=== PATIENT | female | born 1985 | race Caucasian/White ===

== ENCOUNTER 2018-01-01 14:42 | Inpatient (IN) | payer MEDICAID ==
[~2018-01-01] VITALS: Ht 162.6 cm; Wt 81.0 kg
[2018-01-01] MEDS ORDERED: 0.9% SODIUM CHLORIDE 10 ML SYRINGE IVP PRN (15:45)
[2018-01-01 16:14] LABS: HEMATOCRIT 38.5 % (36-46); HEMOGLOBIN 13.2 g/dL (12.0-16.0); MEAN CORPUSCULAR HEMOGLOBIN 27.4 pg (26.0-34.0); MEAN CORPUSCULAR HGB CONC 34.4 G/dL (31.0-37.0); MEAN CORPUSCULAR VOLUME 80 fL (80-100); PLATELET COUNT (AUTO) 340 K/uL (150-450); RED BLOOD CELL COUNT(AUTO) 4.83 MIL/uL (4.00-5.20)
[2018-01-01 16:21] LABS: ALBUMIN 1.9 g/dL (3.4-5.0); BILIRUBIN,TOTAL 0.5 mg/dL (0.1-1.0); CALCIUM, TOTAL 8.2 mg/dL (8.8-10.5); CREATININE 1.36 mg/dL (0.60-1.30); POTASSIUM 3.3 mmol/L (3.5-5.1); TOTAL PROTEIN, SERUM 6.5 g/dL (6.4-8.2)
[2018-01-01 16:24] LABS: LACTIC ACID 1.2 mmol/L (0.4-2.0)
[2018-01-01] MEDS ORDERED: PIPERACILLIN/TAZO 3.375 GM/D5W 50 ML IV ONE ×2 (17:00→21:00)
[2018-01-01] MEDS ORDERED: KETOROLAC TROMETHAMINE 30 MG/ML VIAL IVP ONE (17:00)
[2018-01-01] MEDS ORDERED: VANCOMYCIN HCL 1 GM/D5% WATER 200 ML IV ONE (17:00)
[2018-01-01] MEDS ORDERED: SODIUM CHLORIDE 0.9% 1,000 ML IV ONE ×3 (17:00→19:35)
[2018-01-01 17:03] LABS: BAND NEUTROPHILS % (MANUAL) 9 % (0-5); EOSINOPHILS % (MANUAL) 1 % (1-6); LYMPHOCYTES % (MANUAL) 10 % (22-44); MONOCYTES % (MANUAL) 4 % (2-9); SEGMENTED NEUTROPHILS % 76 % (40-70)
[2018-01-01 17:09] LABS: PLATELET MORPHOLOGY COMMENT GIANT PLTS PRESENT
[2018-01-01] MEDS ORDERED: CloNIDine HCL 0.2 MG TABLET PO ONE (17:45)
[2018-01-01] MEDS ORDERED: ONDANSETRON HCL 4 MG/2 ML VIAL IVP ONE (17:45)
[2018-01-01] MEDS ORDERED: ACETAMINOPHEN 325 MG TABLET PO ONE (17:45)
[2018-01-01] MEDS ORDERED: IOVERSOL 350 MG/ML 100 ML VIAL ONE (18:43)
[2018-01-01] MEDS ORDERED: SODIUM CL IRRIG SOLN BAG 3,000 ML IRRIG ONE (19:35)
[2018-01-01] MEDS ORDERED: RINGERS SOLUTION,LACTATED 1,000 ML IV ONE (19:36)
[2018-01-01] MEDS ORDERED: ONDANSETRON HCL 4 MG/2 ML VIAL IVP PRN (20:00)
[2018-01-01] MEDS ORDERED: ACETAMINOPHEN 325 MG TABLET PO PRN (20:00)
[2018-01-01] MEDS ORDERED: HEPARIN SODIUM 1000 UNITS/NS 500 ML ONE (20:03)
[2018-01-01] MEDS ORDERED: IPRATROPIUM BROMIDE 0.5 MG/2.5 ML NEB SOLUTION NEB PRN (20:30)
[2018-01-01] MEDS ORDERED: POTASSIUM CHLORIDE 20 MEQ ER TABLET PO PRN (20:30)
[2018-01-01] MEDS ORDERED: BISACODYL 10 MG RECTAL RECTAL SUPPOSITORY PR PRN (20:30)
[2018-01-01] MEDS ORDERED: MAGNESIUM SULFATE 2 GM in DEXTROSE 5%-WATER 50 ML IV PRN (20:30)
[2018-01-01] MEDS ORDERED: ALBUTEROL SULFATE 2.5 MG/0.5 ML NEB SOLUTION NEB PRN (20:30)
[2018-01-01] MEDS ORDERED: MAGNESIUM HYDROXIDE SUSPENSION 30 ML UDCUP PO PRN (20:30)
[2018-01-01] MEDS ORDERED: MAGNESIUM OXIDE 400 MG TABLET PO PRN (20:30)
[2018-01-01] MEDS ORDERED: MAGNESIUM SULFATE 4 GM/WATER 100 ML IV PRN (20:30)
[2018-01-01 21:15] LABS: ABG A-A DIFF O2 206.3 mmHg (10-20.0); ABG CARBOXYHEMOGLOBIN 1.1 % (0.0-1.5); ABG HCO3 21.3 mmol/L (22.0-26.0); ABG METHEMOGLOBIN 0.1 % (0.0-1.5); ABG OXYGEN CONTENT 18.4 mL/dL (15.0-23.0); ABG OXYGEN SATURATION 98.8 % (95.0-98.0); ABG OXYHEMOGLOBIN 97.6 % (94.0-100.0); ABG PCO2 30 mmHg (35-45); ABG PH 7.429 (7.350-7.450); ABG TOTAL HEMOGLOBIN 13.3 G/dL (12.0-18.0); O2 DEVICE,BLOOD GAS VENTILATOR (ROOM AIR); PEEP,BG 5 cm H2O; PO2, ARTERIAL BG 116.9 mmHg (92.0-100.0); SITE, BLOOD GAS ARTERIAL LINE; SOURCE, BLOOD GAS ARTERIAL; VT, ABG 550 ml
[2018-01-01] MEDS ORDERED: SODIUM BICARBONATE [ADULT] 8.4% 50 MEQ/50 ML SYRINGE IVP ONE (21:19)
[2018-01-01 21:55] LABS: HEMATOCRIT 24.5 % (36-46); HEMOGLOBIN 8.4 g/dL (12.0-16.0); MEAN CORPUSCULAR HEMOGLOBIN 27.5 pg (26.0-34.0); MEAN CORPUSCULAR HGB CONC 34.3 G/dL (31.0-37.0); MEAN CORPUSCULAR VOLUME 80 fL (80-100); PLATELET COUNT (AUTO) 219 K/uL (150-450); RED BLOOD CELL COUNT(AUTO) 3.06 MIL/uL (4.00-5.20); RED CELL DISTRIBUTION WIDTH 14.7 % (11.5-14.5)
[2018-01-01] MEDS ORDERED: RINGERS SOLUTION,LACTATED 2,000 ML IV ONE (21:55)
[2018-01-01] MEDS ORDERED: SODIUM CHLORIDE 0.9% 250 ML IV ONE (22:19)
[2018-01-01 22:22] LABS: BAND NEUTROPHILS % (MANUAL) 18 % (0-5); EOSINOPHILS % (MANUAL) 3 % (1-6); LYMPHOCYTES % (MANUAL) 5 % (22-44); MONOCYTES % (MANUAL) 7 % (2-9); SEGMENTED NEUTROPHILS % 67 % (40-70)
[2018-01-01 22:23] LABS: PLATELET MORPHOLOGY COMMENT GIANT PLTS PRESENT; WBC MORPHOLOGY TOXIC GRANULATION
[2018-01-01] MEDS ORDERED: PIPERACILLIN/TAZO 3.375 GM/D5W 50 ML IV SCH (23:00)
[2018-01-01] MEDS ORDERED: NOREPINEPHRINE 4 MG/D5%-WATER 250 ML IV PRN (23:32)
[2018-01-01] MEDS ORDERED: PHENYLEPHRINE 200 MG/D5%-WATER 250 ML IV PRN (23:32)
[2018-01-01] MEDS: HEPARIN SODIUM,PORCINE 5,000 UNITS/ML VIAL SQ SCH (23:43)
[2018-01-01] MEDS: SODIUM CHLORIDE 0.9% 1,000 ML IV SCH (23:43)
[2018-01-01] MEDS: PROPOFOL 1000 MG/ISO-OSM 100 ML IV PRN (23:46)
[2018-01-02] VITALS (11 sets, daily range): BP systolic 113–157; BP diastolic 60–109
[2018-01-02 00:06] LABS: HEMATOCRIT 30.2 % (36-46); HEMOGLOBIN 10.2 g/dL (12.0-16.0); MEAN CORPUSCULAR HEMOGLOBIN 27.3 pg (26.0-34.0); MEAN CORPUSCULAR HGB CONC 33.7 G/dL (31.0-37.0); MEAN CORPUSCULAR VOLUME 81 fL (80-100); PLATELET COUNT (AUTO) 347 K/uL (150-450); RED BLOOD CELL COUNT(AUTO) 3.73 MIL/uL (4.00-5.20); RED CELL DISTRIBUTION WIDTH 14.8 % (11.5-14.5)
[2018-01-02 00:26] LABS: ALBUMIN 1.5 g/dL (3.4-5.0); BILIRUBIN,TOTAL 0.9 mg/dL (0.1-1.0); CALCIUM, TOTAL 7.4 mg/dL (8.8-10.5); CREATININE 1.25 mg/dL (0.60-1.30); POTASSIUM 3.4 mmol/L (3.5-5.1); TOTAL PROTEIN, SERUM 4.8 g/dL (6.4-8.2)
[2018-01-02] MEDS: POTASSIUM CHL 10 MEQ/WATER 50 ML IV PRN ×9 (00:37→20:16)
[2018-01-02 01:15] LABS: BAND NEUTROPHILS % (MANUAL) 11 % (0-5); LYMPHOCYTES % (MANUAL) 4 % (22-44); MONOCYTES % (MANUAL) 5 % (2-9); SEGMENTED NEUTROPHILS % 80 % (40-70); WBC MORPHOLOGY TOXIC GRANULATION
[2018-01-02 01:27] LABS: ABG BASE EXCESS -2.8 mmol/L (-2.0-3.0); ABG CARBOXYHEMOGLOBIN 0.7 % (0.0-1.5); ABG HCO3 22.7 mmol/L (22.0-26.0); ABG METHEMOGLOBIN 0.3 % (0.0-1.5); ABG OXYGEN CONTENT 14.2 mL/dL (15.0-23.0); ABG OXYGEN SATURATION 99.1 % (95.0-98.0); ABG OXYHEMOGLOBIN 98.1 % (94.0-100.0); ABG PCO2 31 mmHg (35-45); ABG PH 7.455 (7.350-7.450); ABG TOTAL HEMOGLOBIN 10.1 G/dL (12.0-18.0); PO2, ARTERIAL BG 139.4 mmHg (92.0-100.0); SITE, BLOOD GAS LFT BRACHIAL; SOURCE, BLOOD GAS ARTERIAL; TEMPERATURE, FAHRENHEIT, BG 97.5 FAHREN (96.0-98.6)
[2018-01-02 01:28] LABS: O2 DEVICE,BLOOD GAS VENTILATOR (ROOM AIR); PEEP,BG 5 cm H2O; SPONTANEOUS VT, BG 506 ml; VT, ABG 550 ml
[2018-01-02] MEDS: PROPOFOL 1000 MG/ISO-OSM 100 ML IV PRN ×3 (04:18→11:20)
[2018-01-02] MEDS ORDERED: PROPOFOL 1% 20 ML VIAL IVP ONE (04:55)
[2018-01-02] MEDS ORDERED: HYDROmorphone 2 MG/ML SYRINGE IVP ONE (04:55)
[2018-01-02] MEDS ORDERED: FentaNYL CITRATE-PF 100 MCG/2 ML VIAL IVP ONE (04:55)
[2018-01-02] MEDS ORDERED: PHENYLEPHRINE HCL 10 MG/ML VIAL IVP ONE (04:55)
[2018-01-02] MEDS ORDERED: ROCURONIUM BROMIDE 10 MG/ML 5 ML VIAL IVP ONE (04:55)
[2018-01-02] MEDS ORDERED: LIDOCAINE HCL/PF 2% 5 ML VIAL IM ONE (04:55)
[2018-01-02] MEDS ORDERED: EPHEDrine SULFATE 50 MG/ML VIAL IM ONE (04:55)
[2018-01-02] MEDS ORDERED: MIDAZOLAM HCL 2 MG/2 ML VIAL IVP ONE (04:55)
[2018-01-02] MEDS: PIPERACILLIN/TAZO 3.375 GM/D5W 50 ML IV SCH ×4 (05:44→23:05)
[2018-01-02 05:50] LABS: HEMATOCRIT 28.4 % (36-46); HEMOGLOBIN 9.6 g/dL (12.0-16.0); MEAN CORPUSCULAR HEMOGLOBIN 27.3 pg (26.0-34.0); MEAN CORPUSCULAR HGB CONC 33.7 G/dL (31.0-37.0); MEAN CORPUSCULAR VOLUME 81 fL (80-100); PLATELET COUNT (AUTO) 313 K/uL (150-450); RED CELL DISTRIBUTION WIDTH 14.5 % (11.5-14.5)
[2018-01-02 05:56] LABS: ALANINE AMINOTRANSFERASE 8 U/L (12-78); ALBUMIN 1.5 g/dL (3.4-5.0); ALKALINE PHOSPHATASE 102 U/L (46-116); ANION GAP 7 mmol/L (8-16); ASPARTATE AMINOTRANSFERASE 11 U/L (15-37); BILIRUBIN,TOTAL 0.5 mg/dL (0.1-1.0); CALCIUM, TOTAL 7.3 mg/dL (8.8-10.5); CARBON DIOXIDE 26 mmol/L (22-29); CHLORIDE 98 mmol/L (98-107); CREATININE 1.14 mg/dL (0.60-1.30); GLOMERULAR FILTR. RATE CALC 56 mL/min (>60); GLUCOSE,RANDOM 116 mg/dL (70-110); PHOSPHORUS 5.1 mg/dL (2.5-4.9); POTASSIUM 3.5 mmol/L (3.5-5.1); SODIUM SERUM 131 mmol/L (136-145); THYROID STIMULATING HORMONE 1.56 uIU/mL (0.36-3.74); TOTAL PROTEIN, SERUM 4.8 g/dL (6.4-8.2); TRIGLYCERIDES 115 mg/dL (15-150); UREA NITROGEN, BLOOD 22 mg/dL (7-18)
[2018-01-02] MEDS: VANCOMYCIN HCL 1 GM/D5% WATER 200 ML IV SCH ×2 (06:38→18:46)
[2018-01-02 08:11] LABS: CHOLESTEROL < 50 mg/dL (131-200); HDL CHOLESTEROL < 3 mg/dL (40-60); LDL CHOL (CALC.) < 24 mg/dL (0-130)
[2018-01-02 08:41] LABS: BAND NEUTROPHILS % (MANUAL) 13 % (0-5); LYMPHOCYTES % (MANUAL) 5 % (22-44); MONOCYTES % (MANUAL) 7 % (2-9); SEGMENTED NEUTROPHILS % 75 % (40-70)
[2018-01-02 08:42] LABS: PLATELET MORPHOLOGY COMMENT GIANT PLTS PRESENT; WBC MORPHOLOGY TOXIC GRANULATION
[2018-01-02] MEDS: PANTOPRAZOLE SODIUM 40 MG DR TABLET PO SCH (09:05)
[2018-01-02] MEDS: HEPARIN SODIUM,PORCINE 5,000 UNITS/ML VIAL SQ SCH ×2 (09:05→20:09)
[2018-01-02] MEDS: SODIUM CHLORIDE 0.9% 1,000 ML IV SCH ×2 (09:05→18:46)
[2018-01-02] MEDS ORDERED: FentaNYL CITRATE PF 500 MCG in DEXTROSE 5%-WATER 90 ML IV PRN (10:06)
[2018-01-02 10:46] LABS: INR 1.1 (0.9-1.1); PROTHROMBIN TIME 11.5 SEC (9.4-11.6)
[2018-01-02] MEDS ORDERED: HEPARIN SODIUM 1000 UNITS/NS 500 ML ONE (11:09)
[2018-01-02 14:05] LABS: APPEARANCE,URINE CLEAR (CLEAR); BILIRUBIN,URINE NEGATIVE (NEGATIVE); GLUCOSE, URINE (UA) NEGATIVE (NEGATIVE); KETONES,URINE NEGATIVE (NEGATIVE); LEUKOCYTE ESTERASE ,URINE NEGATIVE (NEGATIVE); NITRATE,URINE NEGATIVE (NEGATIVE); OCCULT BLOOD,URINE NEGATIVE (NEGATIVE); PROTEIN,URINE NEGATIVE (NEGATIVE)
[2018-01-02 14:53] LABS: ABG A-A DIFF O2 129.1 mmHg (10-20.0); ABG BASE EXCESS -1.7 mmol/L (-2.0-3.0); ABG CARBOXYHEMOGLOBIN 0.4 % (0.0-1.5); ABG HCO3 23.4 mmol/L (22.0-26.0); ABG METHEMOGLOBIN 0.1 % (0.0-1.5); ABG OXYGEN SATURATION 96.5 % (95.0-98.0); ABG PCO2 30 mmHg (35-45); ABG PH 7.475 (7.350-7.450); ABG TOTAL HEMOGLOBIN 8.8 G/dL (12.0-18.0); CPAP, BG 0 cm H2O; O2 DEVICE,BLOOD GAS VENTILATOR (ROOM AIR); PEEP,BG 0 cm H2O; PO2, ARTERIAL BG 85.1 mmHg (92.0-100.0); PRESSURE SUPPORT, BG 8 cm H2O; SITE, BLOOD GAS LFT RADIAL; SOURCE, BLOOD GAS ARTERIAL; TEMPERATURE, FAHRENHEIT, BG 98.6 FAHREN (96.0-98.6); VENT MODE, BG SPONTANEOUS (ROOM AIR)
[2018-01-02 14:54] LABS: SPONTANEOUS VT, BG 725 ml
[2018-01-02] MEDS: MORPHINE SULFATE 4 MG/ML SYRINGE IVP PRN ×2 (15:27→20:10)
[2018-01-02] MEDS ORDERED: SODIUM CHLORIDE 0.9% 250 ML IV ONE ×2 (16:53→17:05)
[2018-01-02] MEDS: OxyCODONE HCL/ACETAMINOPHEN 5-325 MG TABLET PO PRN (22:10)
[2018-01-03] VITALS (12 sets, daily range): BP systolic 109–133; BP diastolic 56–73
[2018-01-03] MEDS: SODIUM CHLORIDE 0.9% 1,000 ML IV SCH ×3 (04:09→20:00)
[2018-01-03] MEDS: PIPERACILLIN/TAZO 3.375 GM/D5W 50 ML IV SCH ×4 (04:10→23:14)
[2018-01-03] MEDS: OxyCODONE HCL/ACETAMINOPHEN 5-325 MG TABLET PO PRN ×4 (04:33→20:26)
[2018-01-03 05:36] LABS: ANION GAP 6 mmol/L (8-16); CALCIUM, TOTAL 6.8 mg/dL (8.8-10.5); CARBON DIOXIDE 25 mmol/L (22-29); CHLORIDE 107 mmol/L (98-107); CREATININE 0.79 mg/dL (0.60-1.30); GLOMERULAR FILTR. RATE CALC > 60 mL/min (>60); GLUCOSE,RANDOM 138 mg/dL (70-110); POTASSIUM 3.6 mmol/L (3.5-5.1); SODIUM SERUM 138 mmol/L (136-145); UREA NITROGEN, BLOOD 10 mg/dL (7-18); VANCOMYCIN,RANDOM 12.1 mcg/mL (25.0-50.0)
[2018-01-03] MEDS: VANCOMYCIN HCL 1 GM/D5% WATER 200 ML IV SCH (06:08)
[2018-01-03] MEDS: POTASSIUM CHL 10 MEQ/WATER 50 ML IV PRN ×3 (06:10→08:40)
[2018-01-03 07:35] LABS: MEAN CORPUSCULAR HEMOGLOBIN 27.5 pg (26.0-34.0); MEAN CORPUSCULAR HGB CONC 33.8 G/dL (31.0-37.0); MEAN CORPUSCULAR VOLUME 81 fL (80-100); PLATELET COUNT (AUTO) 276 K/uL (150-450); RED BLOOD CELL COUNT(AUTO) 2.44 MIL/uL (4.00-5.20)
[2018-01-03 08:10] LABS: HEMATOCRIT 19.9 % (36-46); HEMOGLOBIN 6.7 g/dL (12.0-16.0)
[2018-01-03] MEDS: PANTOPRAZOLE SODIUM 40 MG DR TABLET PO SCH (08:39)
[2018-01-03] MEDS: HEPARIN SODIUM,PORCINE 5,000 UNITS/ML VIAL SQ SCH ×2 (08:40→20:26)
[2018-01-03 09:10] LABS: BAND NEUTROPHILS % (MANUAL) 23 % (0-5); EOSINOPHILS % (MANUAL) 1 % (1-6); LYMPHOCYTES % (MANUAL) 13 % (22-44); MONOCYTES % (MANUAL) 5 % (2-9); SEGMENTED NEUTROPHILS % 58 % (40-70)
[2018-01-03 09:39] LABS: HEMATOCRIT 23.1 % (36-46); HEMOGLOBIN 7.9 g/dL (12.0-16.0)
[2018-01-03 10:11] LABS: POTASSIUM 4.2 mmol/L (3.5-5.1)
[2018-01-03 11:05] LABS: MAGNESIUM 2.1 mg/dL (1.80-2.40)
[2018-01-03] MEDS: MORPHINE SULFATE 4 MG/ML SYRINGE IVP PRN ×2 (13:11→17:17)
[2018-01-03] MEDS: VANCOMYCIN HCL 1.25 GM in DEXTROSE 5%-WATER 250 ML IV SCH (18:26)
[2018-01-04] VITALS (14 sets, daily range): BP systolic 108–167; BP diastolic 66–92
[2018-01-04] MEDS: MORPHINE SULFATE 4 MG/ML SYRINGE IVP PRN ×4 (01:30→20:00)
[2018-01-04] MEDS: PIPERACILLIN/TAZO 3.375 GM/D5W 50 ML IV SCH ×4 (04:52→23:07)
[2018-01-04] MEDS: SODIUM CHLORIDE 0.9% 1,000 ML IV SCH ×2 (04:53→11:11)
[2018-01-04 06:28] LABS: ANION GAP 5 mmol/L (8-16); CALCIUM, TOTAL 7.3 mg/dL (8.8-10.5); CARBON DIOXIDE 26 mmol/L (22-29); CHLORIDE 110 mmol/L (98-107); GLOMERULAR FILTR. RATE CALC > 60 mL/min (>60); GLUCOSE,RANDOM 110 mg/dL (70-110); POTASSIUM 4.2 mmol/L (3.5-5.1); SODIUM SERUM 141 mmol/L (136-145); UREA NITROGEN, BLOOD 6 mg/dL (7-18)
[2018-01-04] MEDS: VANCOMYCIN HCL 1.25 GM in DEXTROSE 5%-WATER 250 ML IV SCH ×2 (06:42→20:02)
[2018-01-04 07:08] LABS: BASOPHILS % (AUTO) 0.2 % (0.0-2.0); EOSINOPHILS % (AUTO) 2.6 % (1.0-6.0); LYMPHOCYTES # (AUTO) 2.4 K/uL (1.0-4.8); LYMPHOCYTES % (AUTO) 16.3 % (22.0-44.0); MEAN CORPUSCULAR HEMOGLOBIN 28.5 pg (26.0-34.0); MEAN CORPUSCULAR VOLUME 81 fL (80-100); MONOCYTES # (AUTO) 1.3 K/uL (0.1-1.0); MONOCYTES % (AUTO) 8.8 % (2.0-9.0); NEUTROPHILS # (AUTO) 10.5 K/uL (1.8-7.7); NEUTROPHILS % (AUTO) 72.1 % (40.0-70.0); PLATELET COUNT (AUTO) 304 K/uL (150-450); RED BLOOD CELL COUNT(AUTO) 2.43 MIL/uL (4.00-5.20); RED CELL DISTRIBUTION WIDTH 15.3 % (11.5-14.5)
[2018-01-04 07:21] LABS: HEMOGLOBIN 6.9 g/dL (12.0-16.0)
[2018-01-04 07:22] LABS: HEMATOCRIT 19.8 % (36-46)
[2018-01-04 07:23] LABS: ALANINE AMINOTRANSFERASE 7 U/L (12-78); ALBUMIN 1.4 g/dL (3.4-5.0); ALKALINE PHOSPHATASE 88 U/L (46-116); ASPARTATE AMINOTRANSFERASE 11 U/L (15-37); BILIRUBIN,TOTAL 0.2 mg/dL (0.1-1.0); TOTAL PROTEIN, SERUM 5.4 g/dL (6.4-8.2)
[2018-01-04] MEDS: PANTOPRAZOLE SODIUM 40 MG DR TABLET PO SCH (08:27)
[2018-01-04] MEDS: HEPARIN SODIUM,PORCINE 5,000 UNITS/ML VIAL SQ SCH ×2 (08:30→23:07)
[2018-01-04] MEDS ORDERED: SODIUM CHLORIDE 0.9% 250 ML IV ONE (10:09)
[2018-01-04] MEDS ORDERED: MIDAZOLAM HCL 2 MG/2 ML VIAL IVP ONE (12:00)
[2018-01-04] MEDS ORDERED: NEOSTIGMINE METHYLSULFATE 1 MG/ML 10 ML VIAL IVP ONE (12:00)
[2018-01-04] MEDS ORDERED: GLYCOPYRROLATE 0.2 MG/ML VIAL IM ONE (12:00)
[2018-01-04] MEDS ORDERED: FentaNYL CITRATE-PF 100 MCG/2 ML VIAL IVP ONE (12:00)
[2018-01-04] MEDS ORDERED: ROCURONIUM BROMIDE 10 MG/ML 5 ML VIAL IVP ONE (12:00)
[2018-01-04] MEDS ORDERED: METOCLOPRAMIDE HCL 5 MG/ML 2 ML VIAL IVP ONE (12:00)
[2018-01-04] MEDS ORDERED: LIDOCAINE HCL/PF 2% 5 ML VIAL INJ ONE (12:00)
[2018-01-04] MEDS ORDERED: DEXAMETHASONE SOD PHOS 4 MG/ML VIAL IVP ONE (12:00)
[2018-01-04] MEDS ORDERED: ONDANSETRON HCL 4 MG/2 ML VIAL IVP ONE (12:00)
[2018-01-04] MEDS ORDERED: RINGERS SOLUTION,LACTATED 1,000 ML IV ONE ×2 (13:26→14:30)
[2018-01-04] MEDS ORDERED: MEPERIDINE HCL/PF 25 MG/0.5 ML AMP IVP PRN (15:00)
[2018-01-04 15:07] LABS: HEMOGLOBIN 8.2 g/dL (12.0-16.0); MEAN CORPUSCULAR HGB CONC 34.3 G/dL (31.0-37.0); MEAN CORPUSCULAR VOLUME 82 fL (80-100); PLATELET COUNT (AUTO) 303 K/uL (150-450); RED BLOOD CELL COUNT(AUTO) 2.93 MIL/uL (4.00-5.20); RED CELL DISTRIBUTION WIDTH 15.2 % (11.5-14.5)
[2018-01-04] MEDS ORDERED: ACETAMINOPHEN 1000 MG/ISO-OSM 100 ML IV ONE (15:45)
[2018-01-04 15:46] LABS: BAND NEUTROPHILS % (MANUAL) 12 % (0-5); BASOPHILS % (MANUAL) 1 % (0-2); LYMPHOCYTES % (MANUAL) 17 % (22-44); METAMYELOCYTES % 1 % (0-0); MONOCYTES % (MANUAL) 7 % (2-9); MYELOCYTES % 1 % (0-0); SEGMENTED NEUTROPHILS % 61 % (40-70)
[2018-01-04] MEDS ORDERED: SODIUM CL IRRIG SOLN BAG 3,000 ML IRRIG ONE (17:12)
[2018-01-04] MEDS ORDERED: MEPERIDINE HCL/PF 25 MG/0.5 ML AMP ONE (18:02)
[2018-01-04] MEDS ORDERED: FentaNYL CITRATE-PF 100 MCG/2 ML VIAL ONE (18:03)
[2018-01-04] MEDS ORDERED: HYDROmorphone 2 MG/ML SYRINGE ONE (18:03)
[2018-01-04] MEDS: FentaNYL CITRATE-PF 100 MCG/2 ML VIAL IVP PRN ×2 (18:05→18:21)
[2018-01-04] MEDS: HYDROmorphone 2 MG/ML SYRINGE IVP PRN ×2 (18:10→18:27)
[2018-01-05] VITALS (7 sets, daily range): BP systolic 104–153; BP diastolic 53–88
[2018-01-05] MEDS: MORPHINE SULFATE 4 MG/ML SYRINGE IVP PRN ×5 (00:08→19:40)
[2018-01-05] MEDS: PIPERACILLIN/TAZO 3.375 GM/D5W 50 ML IV SCH ×4 (05:12→23:13)
[2018-01-05] MEDS: VANCOMYCIN HCL 1.25 GM in DEXTROSE 5%-WATER 250 ML IV SCH ×2 (06:33→18:23)
[2018-01-05 06:44] LABS: ALANINE AMINOTRANSFERASE 7 U/L (12-78); ALBUMIN 1.5 g/dL (3.4-5.0); ALKALINE PHOSPHATASE 90 U/L (46-116); ANION GAP 3 mmol/L (8-16); ASPARTATE AMINOTRANSFERASE 12 U/L (15-37); BILIRUBIN,TOTAL 0.2 mg/dL (0.1-1.0); CALCIUM, TOTAL 7.4 mg/dL (8.8-10.5); CARBON DIOXIDE 28 mmol/L (22-29); CHLORIDE 108 mmol/L (98-107); CREATININE 0.63 mg/dL (0.60-1.30); GLOMERULAR FILTR. RATE CALC > 60 mL/min (>60); GLUCOSE,RANDOM 126 mg/dL (70-110); POTASSIUM 4.5 mmol/L (3.5-5.1); SODIUM SERUM 139 mmol/L (136-145); TOTAL PROTEIN, SERUM 5.9 g/dL (6.4-8.2); UREA NITROGEN, BLOOD 8 mg/dL (7-18)
[2018-01-05 07:23] LABS: BASOPHILS % (AUTO) 0.2 % (0.0-2.0); EOSINOPHILS % (AUTO) 0.7 % (1.0-6.0); HEMATOCRIT 24.9 % (36-46); HEMOGLOBIN 8.4 g/dL (12.0-16.0); LYMPHOCYTES # (AUTO) 1.9 K/uL (1.0-4.8); LYMPHOCYTES % (AUTO) 13.6 % (22.0-44.0); MEAN CORPUSCULAR HEMOGLOBIN 27.6 pg (26.0-34.0); MEAN CORPUSCULAR HGB CONC 33.7 G/dL (31.0-37.0); MEAN CORPUSCULAR VOLUME 82 fL (80-100); MONOCYTES # (AUTO) 0.9 K/uL (0.1-1.0); MONOCYTES % (AUTO) 6.6 % (2.0-9.0); NEUTROPHILS # (AUTO) 11.2 K/uL (1.8-7.7); NEUTROPHILS % (AUTO) 78.9 % (40.0-70.0); PLATELET COUNT (AUTO) 311 K/uL (150-450); RED BLOOD CELL COUNT(AUTO) 3.04 MIL/uL (4.00-5.20)
[2018-01-05] MEDS: OXYGEN THERAPY IH SCH ×2 (08:00→20:00)
[2018-01-05] MEDS: SODIUM CHLORIDE 0.9% 1,000 ML IV SCH (08:51)
[2018-01-05] MEDS: MULTIVITAMINS WITH MINERALS, THERAPEUTIC TABLET PO SCH (08:52)
[2018-01-05] MEDS: PANTOPRAZOLE SODIUM 40 MG DR TABLET PO SCH (08:52)
[2018-01-05] MEDS: CHOLECALCIFEROL (VIT D3) 1,000 UNITS TABLET PO SCH (08:52)
[2018-01-05] MEDS: HEPARIN SODIUM,PORCINE 5,000 UNITS/ML VIAL SQ SCH ×2 (08:53→19:44)
[2018-01-05] MEDS: OxyCODONE HCL/ACETAMINOPHEN 5-325 MG TABLET PO PRN ×3 (08:54→23:14)
[2018-01-06] MEDS: MORPHINE SULFATE 4 MG/ML SYRINGE IVP PRN ×5 (04:57→23:32)
[2018-01-06] MEDS: SODIUM CHLORIDE 0.9% 1,000 ML IV SCH ×3 (04:58→19:34)
[2018-01-06] MEDS: PIPERACILLIN/TAZO 3.375 GM/D5W 50 ML IV SCH ×4 (04:58→23:31)
[2018-01-06 05:03] VITALS: BP 129/72
[2018-01-06] MEDS: VANCOMYCIN HCL 1.25 GM in DEXTROSE 5%-WATER 250 ML IV SCH (06:17)
[2018-01-06 06:51] LABS: BASOPHILS % (AUTO) 0.5 % (0.0-2.0); EOSINOPHILS % (AUTO) 3.1 % (1.0-6.0); HEMATOCRIT 25.8 % (36-46); HEMOGLOBIN 8.8 g/dL (12.0-16.0); LYMPHOCYTES # (AUTO) 2.2 K/uL (1.0-4.8); LYMPHOCYTES % (AUTO) 17.1 % (22.0-44.0); MEAN CORPUSCULAR HEMOGLOBIN 28.1 pg (26.0-34.0); MEAN CORPUSCULAR HGB CONC 33.9 G/dL (31.0-37.0); MEAN CORPUSCULAR VOLUME 83 fL (80-100); MONOCYTES # (AUTO) 0.8 K/uL (0.1-1.0); MONOCYTES % (AUTO) 6.6 % (2.0-9.0); NEUTROPHILS # (AUTO) 9.2 K/uL (1.8-7.7); NEUTROPHILS % (AUTO) 72.7 % (40.0-70.0); PLATELET COUNT (AUTO) 383 K/uL (150-450); RED BLOOD CELL COUNT(AUTO) 3.12 MIL/uL (4.00-5.20); RED CELL DISTRIBUTION WIDTH 15.2 % (11.5-14.5)
[2018-01-06 07:12] LABS: ALANINE AMINOTRANSFERASE 8 U/L (12-78); ALBUMIN 1.5 g/dL (3.4-5.0); ALKALINE PHOSPHATASE 68 U/L (46-116); ANION GAP 6 mmol/L (8-16); ASPARTATE AMINOTRANSFERASE 12 U/L (15-37); BILIRUBIN,TOTAL 0.2 mg/dL (0.1-1.0); CALCIUM, TOTAL 7.4 mg/dL (8.8-10.5); CARBON DIOXIDE 27 mmol/L (22-29); CHLORIDE 107 mmol/L (98-107); CREATININE 0.76 mg/dL (0.60-1.30); GLOMERULAR FILTR. RATE CALC > 60 mL/min (>60); GLUCOSE,RANDOM 112 mg/dL (70-110); POTASSIUM 4.2 mmol/L (3.5-5.1); SODIUM SERUM 140 mmol/L (136-145); TOTAL PROTEIN, SERUM 5.7 g/dL (6.4-8.2); UREA NITROGEN, BLOOD 8 mg/dL (7-18); VANCOMYCIN,RANDOM 12.5 mcg/mL (25.0-50.0)
[2018-01-06 07:59] VITALS: BP 127/85
[2018-01-06] MEDS: OXYGEN THERAPY IH SCH ×2 (08:00→20:00)
[2018-01-06] MEDS: MULTIVITAMINS WITH MINERALS, THERAPEUTIC TABLET PO SCH (08:57)
[2018-01-06] MEDS: HEPARIN SODIUM,PORCINE 5,000 UNITS/ML VIAL SQ SCH ×2 (08:57→20:40)
[2018-01-06] MEDS: CHOLECALCIFEROL (VIT D3) 1,000 UNITS TABLET PO SCH (08:57)
[2018-01-06] MEDS: PANTOPRAZOLE SODIUM 40 MG DR TABLET PO SCH (08:57)
[2018-01-06 11:38] VITALS: BP 131/71
[2018-01-06] MEDS: VANCOMYCIN HCL 750 MG in DEXTROSE 5%-WATER 250 ML IV SCH ×2 (14:01→21:57)
[2018-01-06 14:12] VITALS: BP 127/72
[2018-01-06] MEDS: OxyCODONE HCL/ACETAMINOPHEN 5-325 MG TABLET PO PRN ×2 (16:16→20:40)
[2018-01-06 19:32] VITALS: BP 126/87
[2018-01-06] MEDS: ACETAMINOPHEN 325 MG TABLET PO PRN (21:58)
[2018-01-07] VITALS (7 sets, daily range): BP systolic 119–145; BP diastolic 65–84
[2018-01-07] MEDS: MORPHINE SULFATE 4 MG/ML SYRINGE IVP PRN ×5 (04:05→20:46)
[2018-01-07] MEDS: ACETAMINOPHEN 325 MG TABLET PO PRN (04:09)
[2018-01-07] MEDS: PIPERACILLIN/TAZO 3.375 GM/D5W 50 ML IV SCH ×4 (04:53→23:38)
[2018-01-07] MEDS: SODIUM CHLORIDE 0.9% 1,000 ML IV SCH ×2 (04:53→11:53)
[2018-01-07] MEDS: VANCOMYCIN HCL 750 MG in DEXTROSE 5%-WATER 250 ML IV SCH ×3 (05:45→20:48)
[2018-01-07] MEDS: OxyCODONE HCL/ACETAMINOPHEN 5-325 MG TABLET PO PRN ×2 (05:52→23:36)
[2018-01-07 07:03] LABS: BASOPHILS % (AUTO) 0.6 % (0.0-2.0); EOSINOPHILS % (AUTO) 2.6 % (1.0-6.0); HEMATOCRIT 27.6 % (36-46); HEMOGLOBIN 9.3 g/dL (12.0-16.0); LYMPHOCYTES % (AUTO) 17.6 % (22.0-44.0); MEAN CORPUSCULAR HEMOGLOBIN 28.2 pg (26.0-34.0); MEAN CORPUSCULAR HGB CONC 33.5 G/dL (31.0-37.0); MEAN CORPUSCULAR VOLUME 84 fL (80-100); MONOCYTES % (AUTO) 8.6 % (2.0-9.0); NEUTROPHILS # (AUTO) 8.1 K/uL (1.8-7.7); NEUTROPHILS % (AUTO) 70.6 % (40.0-70.0); PLATELET COUNT (AUTO) 395 K/uL (150-450); RED BLOOD CELL COUNT(AUTO) 3.28 MIL/uL (4.00-5.20); RED CELL DISTRIBUTION WIDTH 14.9 % (11.5-14.5)
[2018-01-07 07:59] LABS: ALANINE AMINOTRANSFERASE 11 U/L (12-78); ALBUMIN 1.6 g/dL (3.4-5.0); ALKALINE PHOSPHATASE 85 U/L (46-116); ANION GAP 8 mmol/L (8-16); ASPARTATE AMINOTRANSFERASE 20 U/L (15-37); BILIRUBIN,TOTAL 0.1 mg/dL (0.1-1.0); CALCIUM, TOTAL 7.6 mg/dL (8.8-10.5); CARBON DIOXIDE 26 mmol/L (22-29); CHLORIDE 107 mmol/L (98-107); CREATININE 0.76 mg/dL (0.60-1.30); GLOMERULAR FILTR. RATE CALC > 60 mL/min (>60); GLUCOSE,RANDOM 90 mg/dL (70-110); POTASSIUM 4.4 mmol/L (3.5-5.1); SODIUM SERUM 141 mmol/L (136-145); TOTAL PROTEIN, SERUM 6.1 g/dL (6.4-8.2); UREA NITROGEN, BLOOD 10 mg/dL (7-18); VANCOMYCIN,RANDOM 13.8 mcg/mL (25.0-50.0)
[2018-01-07] MEDS: OXYGEN THERAPY IH SCH ×2 (08:00→20:00)
[2018-01-07] MEDS: HEPARIN SODIUM,PORCINE 5,000 UNITS/ML VIAL SQ SCH ×2 (08:32→20:44)
[2018-01-07] MEDS: MULTIVITAMINS WITH MINERALS, THERAPEUTIC TABLET PO SCH (08:32)
[2018-01-07] MEDS: CHOLECALCIFEROL (VIT D3) 1,000 UNITS TABLET PO SCH (08:32)
[2018-01-07] MEDS: PANTOPRAZOLE SODIUM 40 MG DR TABLET PO SCH (08:33)
[2018-01-07] MEDS ORDERED: SODIUM CHLORIDE 0.9% IRRIG BTL 1,000 ML IRRIG ONE (08:39)
[2018-01-07] MEDS ORDERED: MORPHINE SULFATE 4 MG/ML SYRINGE IVP ONE (09:00)
[2018-01-08] MEDS: PIPERACILLIN/TAZO 3.375 GM/D5W 50 ML IV SCH ×4 (04:51→22:39)
[2018-01-08] MEDS: SODIUM CHLORIDE 0.9% 1,000 ML IV SCH ×2 (04:53→13:40)
[2018-01-08] MEDS: MORPHINE SULFATE 4 MG/ML SYRINGE IVP PRN ×3 (05:14→16:38)
[2018-01-08 05:40] VITALS: BP 126/75
[2018-01-08] MEDS: VANCOMYCIN HCL 750 MG in DEXTROSE 5%-WATER 250 ML IV SCH ×3 (06:23→20:25)
[2018-01-08 07:56] LABS: BASOPHILS % (AUTO) 0.9 % (0.0-2.0); EOSINOPHILS % (AUTO) 2.5 % (1.0-6.0); HEMATOCRIT 28.9 % (36-46); HEMOGLOBIN 9.7 g/dL (12.0-16.0); LYMPHOCYTES # (AUTO) 2.2 K/uL (1.0-4.8); LYMPHOCYTES % (AUTO) 20.5 % (22.0-44.0); MEAN CORPUSCULAR HEMOGLOBIN 28.1 pg (26.0-34.0); MEAN CORPUSCULAR HGB CONC 33.4 G/dL (31.0-37.0); MEAN CORPUSCULAR VOLUME 84 fL (80-100); MONOCYTES # (AUTO) 0.8 K/uL (0.1-1.0); MONOCYTES % (AUTO) 7.6 % (2.0-9.0); NEUTROPHILS # (AUTO) 7.2 K/uL (1.8-7.7); NEUTROPHILS % (AUTO) 68.5 % (40.0-70.0); PLATELET COUNT (AUTO) 410 K/uL (150-450); RED BLOOD CELL COUNT(AUTO) 3.43 MIL/uL (4.00-5.20); RED CELL DISTRIBUTION WIDTH 15.2 % (11.5-14.5)
[2018-01-08 08:00] VITALS: BP 107/73
[2018-01-08 08:18] LABS: ALANINE AMINOTRANSFERASE 13 U/L (12-78); BILIRUBIN,TOTAL 0.2 mg/dL (0.1-1.0); CHLORIDE 102 mmol/L (98-107); CREATININE 0.71 mg/dL (0.60-1.30); GLOMERULAR FILTR. RATE CALC > 60 mL/min (>60); GLUCOSE,RANDOM 97 mg/dL (70-110); POTASSIUM 4.1 mmol/L (3.5-5.1); SODIUM SERUM 135 mmol/L (136-145)
[2018-01-08 08:30] LABS: ALBUMIN 1.9 g/dL (3.4-5.0); ALKALINE PHOSPHATASE 73 U/L (46-116); ANION GAP 5 mmol/L (8-16); ASPARTATE AMINOTRANSFERASE 14 U/L (15-37); CARBON DIOXIDE 28 mmol/L (22-29); UREA NITROGEN, BLOOD 9 mg/dL (7-18)
[2018-01-08] MEDS: MULTIVITAMINS WITH MINERALS, THERAPEUTIC TABLET PO SCH (08:34)
[2018-01-08] MEDS: PANTOPRAZOLE SODIUM 40 MG DR TABLET PO SCH (08:34)
[2018-01-08] MEDS: CHOLECALCIFEROL (VIT D3) 1,000 UNITS TABLET PO SCH (08:34)
[2018-01-08] MEDS: HEPARIN SODIUM,PORCINE 5,000 UNITS/ML VIAL SQ SCH ×2 (08:35→20:25)
[2018-01-08 12:01] VITALS: BP 124/76
[2018-01-08 15:38] VITALS: BP 121/76
[2018-01-08 20:01] VITALS: BP 133/82
[2018-01-08] MEDS: OxyCODONE HCL/ACETAMINOPHEN 5-325 MG TABLET PO PRN (22:38)
[2018-01-08 23:22] VITALS: BP 132/68
[2018-01-09] MEDS: MORPHINE SULFATE 4 MG/ML SYRINGE IVP PRN ×4 (00:07→23:04)
[2018-01-09 04:00] VITALS: BP 131/76
[2018-01-09] MEDS: OxyCODONE HCL/ACETAMINOPHEN 5-325 MG TABLET PO PRN ×2 (04:36→23:19)
[2018-01-09] MEDS: PIPERACILLIN/TAZO 3.375 GM/D5W 50 ML IV SCH ×4 (04:39→23:03)
[2018-01-09] MEDS: VANCOMYCIN HCL 750 MG in DEXTROSE 5%-WATER 250 ML IV SCH (05:22)
[2018-01-09 06:33] LABS: BASOPHILS % (AUTO) 0.7 % (0.0-2.0); EOSINOPHILS % (AUTO) 2.6 % (1.0-6.0); HEMATOCRIT 26.5 % (36-46); LYMPHOCYTES # (AUTO) 2.1 K/uL (1.0-4.8); LYMPHOCYTES % (AUTO) 23.6 % (22.0-44.0); MEAN CORPUSCULAR HEMOGLOBIN 28.4 pg (26.0-34.0); MEAN CORPUSCULAR VOLUME 84 fL (80-100); MONOCYTES # (AUTO) 0.8 K/uL (0.1-1.0); MONOCYTES % (AUTO) 8.6 % (2.0-9.0); NEUTROPHILS # (AUTO) 5.8 K/uL (1.8-7.7); NEUTROPHILS % (AUTO) 64.5 % (40.0-70.0); PLATELET COUNT (AUTO) 519 K/uL (150-450); RED BLOOD CELL COUNT(AUTO) 3.16 MIL/uL (4.00-5.20); RED CELL DISTRIBUTION WIDTH 15.5 % (11.5-14.5)
[2018-01-09 06:58] LABS: ALANINE AMINOTRANSFERASE 15 U/L (12-78); ALKALINE PHOSPHATASE 73 U/L (46-116); ANION GAP 3 mmol/L (8-16); ASPARTATE AMINOTRANSFERASE 16 U/L (15-37); BILIRUBIN,TOTAL 0.2 mg/dL (0.1-1.0); CALCIUM, TOTAL 7.8 mg/dL (8.8-10.5); CARBON DIOXIDE 29 mmol/L (22-29); CHLORIDE 107 mmol/L (98-107); CREATININE 0.67 mg/dL (0.60-1.30); GLOMERULAR FILTR. RATE CALC > 60 mL/min (>60); GLUCOSE,RANDOM 91 mg/dL (70-110); POTASSIUM 4.1 mmol/L (3.5-5.1); SODIUM SERUM 139 mmol/L (136-145); TOTAL PROTEIN, SERUM 6.8 g/dL (6.4-8.2); UREA NITROGEN, BLOOD 12 mg/dL (7-18); VANCOMYCIN,RANDOM 10.8 mcg/mL (25.0-50.0)
[2018-01-09 07:16] VITALS: BP 121/68
[2018-01-09 08:32] LABS: PLATELET MORPHOLOGY COMMENT GIANT PLTS PRESENT
[2018-01-09] MEDS: MULTIVITAMINS WITH MINERALS, THERAPEUTIC TABLET PO SCH (09:12)
[2018-01-09] MEDS: PANTOPRAZOLE SODIUM 40 MG DR TABLET PO SCH (09:13)
[2018-01-09] MEDS: CHOLECALCIFEROL (VIT D3) 1,000 UNITS TABLET PO SCH (09:13)
[2018-01-09] MEDS: HEPARIN SODIUM,PORCINE 5,000 UNITS/ML VIAL SQ SCH ×2 (09:16→20:40)
[2018-01-09 12:17] VITALS: BP 119/62
[2018-01-09] MEDS: SODIUM CHLORIDE 0.9% 1,000 ML IV SCH (14:29)
[2018-01-09] MEDS: VANCOMYCIN HCL 1 GM/D5% WATER 200 ML IV SCH ×2 (15:45→23:03)
[2018-01-09 16:15] VITALS: BP 118/71
[2018-01-09 19:30] VITALS: BP 111/65
[2018-01-09 23:14] VITALS: BP 126/70
[2018-01-10 04:54] VITALS: BP 117/64
[2018-01-10] MEDS: PIPERACILLIN/TAZO 3.375 GM/D5W 50 ML IV SCH ×4 (05:04→22:44)
[2018-01-10 06:40] LABS: EOSINOPHILS % (AUTO) 2.8 % (1.0-6.0); HEMATOCRIT 28.8 % (36-46); HEMOGLOBIN 9.9 g/dL (12.0-16.0); LYMPHOCYTES # (AUTO) 2.1 K/uL (1.0-4.8); LYMPHOCYTES % (AUTO) 26.5 % (22.0-44.0); MEAN CORPUSCULAR HEMOGLOBIN 29.2 pg (26.0-34.0); MEAN CORPUSCULAR HGB CONC 34.5 G/dL (31.0-37.0); MEAN CORPUSCULAR VOLUME 85 fL (80-100); MONOCYTES # (AUTO) 0.6 K/uL (0.1-1.0); MONOCYTES % (AUTO) 8.1 % (2.0-9.0); NEUTROPHILS # (AUTO) 4.9 K/uL (1.8-7.7); NEUTROPHILS % (AUTO) 61.6 % (40.0-70.0); PLATELET COUNT (AUTO) 532 K/uL (150-450); RED CELL DISTRIBUTION WIDTH 15.4 % (11.5-14.5)
[2018-01-10 06:46] LABS: ALANINE AMINOTRANSFERASE 17 U/L (12-78); ALBUMIN 2.1 g/dL (3.4-5.0); ALKALINE PHOSPHATASE 88 U/L (46-116); ANION GAP 8 mmol/L (8-16); ASPARTATE AMINOTRANSFERASE 17 U/L (15-37); BILIRUBIN,TOTAL 0.2 mg/dL (0.1-1.0); CALCIUM, TOTAL 7.8 mg/dL (8.8-10.5); CARBON DIOXIDE 24 mmol/L (22-29); CHLORIDE 105 mmol/L (98-107); CREATININE 0.86 mg/dL (0.60-1.30); GLOMERULAR FILTR. RATE CALC > 60 mL/min (>60); GLUCOSE,RANDOM 97 mg/dL (70-110); POTASSIUM 3.9 mmol/L (3.5-5.1); SODIUM SERUM 137 mmol/L (136-145); TOTAL PROTEIN, SERUM 6.9 g/dL (6.4-8.2); UREA NITROGEN, BLOOD 19 mg/dL (7-18)
[2018-01-10 07:58] VITALS: BP 110/67
[2018-01-10] MEDS: HEPARIN SODIUM,PORCINE 5,000 UNITS/ML VIAL SQ SCH ×2 (08:33→21:00)
[2018-01-10] MEDS: MULTIVITAMINS WITH MINERALS, THERAPEUTIC TABLET PO SCH (08:34)
[2018-01-10] MEDS: CHOLECALCIFEROL (VIT D3) 1,000 UNITS TABLET PO SCH (08:34)
[2018-01-10] MEDS: PANTOPRAZOLE SODIUM 40 MG DR TABLET PO SCH (08:34)
[2018-01-10] MEDS: VANCOMYCIN HCL 1 GM/D5% WATER 200 ML IV SCH ×2 (08:59→15:51)
[2018-01-10] MEDS: MORPHINE SULFATE 4 MG/ML SYRINGE IVP PRN ×3 (09:00→20:51)
[2018-01-10] MEDS: OxyCODONE HCL/ACETAMINOPHEN 5-325 MG TABLET PO PRN ×2 (09:00→22:54)
[2018-01-10] MEDS: SODIUM CHLORIDE 0.9% 1,000 ML IV SCH ×2 (12:08→21:42)
[2018-01-10 13:59] VITALS: BP 115/66
[2018-01-10 16:04] VITALS: BP 129/79
[2018-01-10 20:04] VITALS: BP 118/61
[2018-01-10] MEDS ORDERED: POTASSIUM CHL 20 MEQ/D5LR 1,000 ML IV ONE (21:00)
[2018-01-10] MEDS: ACETAMINOPHEN 325 MG TABLET PO PRN (21:57)
[2018-01-10] MEDS: ZOLPIDEM TARTRATE 5 MG TABLET PO PRN (21:57)
[2018-01-10] MEDS: ONDANSETRON HCL 4 MG/2 ML VIAL IVP PRN (22:54)
[2018-01-10 23:30] VITALS: BP 102/64
[2018-01-11] VITALS (12 sets, daily range): BP systolic 98–147; BP diastolic 49–87
[2018-01-11] MEDS: VANCOMYCIN HCL 1 GM/D5% WATER 200 ML IV SCH (00:02)
[2018-01-11] MEDS: PIPERACILLIN/TAZO 3.375 GM/D5W 50 ML IV SCH ×2 (04:20→13:22)
[2018-01-11] MEDS ORDERED: SODIUM CHLORIDE 0.9% 1,000 ML IV ONE ×3 (05:47→07:09)
[2018-01-11] MEDS: MORPHINE SULFATE 4 MG/ML SYRINGE IVP PRN ×3 (06:06→19:35)
[2018-01-11 06:36] LABS: BASOPHILS % (AUTO) 1.5 % (0.0-2.0); EOSINOPHILS % (AUTO) 2.6 % (1.0-6.0); HEMATOCRIT 27.4 % (36-46); HEMOGLOBIN 9.7 g/dL (12.0-16.0); LYMPHOCYTES # (AUTO) 1.7 K/uL (1.0-4.8); LYMPHOCYTES % (AUTO) 29.1 % (22.0-44.0); MEAN CORPUSCULAR HEMOGLOBIN 29.5 pg (26.0-34.0); MEAN CORPUSCULAR HGB CONC 35.4 G/dL (31.0-37.0); MEAN CORPUSCULAR VOLUME 84 fL (80-100); MONOCYTES # (AUTO) 0.6 K/uL (0.1-1.0); MONOCYTES % (AUTO) 10.2 % (2.0-9.0); NEUTROPHILS # (AUTO) 3.4 K/uL (1.8-7.7); NEUTROPHILS % (AUTO) 56.6 % (40.0-70.0); PLATELET COUNT (AUTO) 523 K/uL (150-450); RED BLOOD CELL COUNT(AUTO) 3.29 MIL/uL (4.00-5.20); RED CELL DISTRIBUTION WIDTH 15.6 % (11.5-14.5)
[2018-01-11] MEDS: SODIUM CHLORIDE 0.9% 1,000 ML IV SCH ×3 (06:37→06:42)
[2018-01-11] MEDS ORDERED: SODIUM CHLORIDE 0.9% 10 ML ONE (06:37)
[2018-01-11] MEDS ORDERED: SODIUM CL IRRIG SOLN BAG 3,000 ML IRRIG ONE (06:38)
[2018-01-11] MEDS ORDERED: BACITRACIN 50,000 UNITS/VIAL ONE (06:38)
[2018-01-11 06:53] LABS: ALANINE AMINOTRANSFERASE 13 U/L (12-78); ALBUMIN 2.2 g/dL (3.4-5.0); ALKALINE PHOSPHATASE 77 U/L (46-116); ANION GAP 5 mmol/L (8-16); ASPARTATE AMINOTRANSFERASE 16 U/L (15-37); BILIRUBIN,TOTAL 0.2 mg/dL (0.1-1.0); CARBON DIOXIDE 27 mmol/L (22-29); CHLORIDE 106 mmol/L (98-107); CREATININE 0.76 mg/dL (0.60-1.30); GLOMERULAR FILTR. RATE CALC > 60 mL/min (>60); GLUCOSE,RANDOM 90 mg/dL (70-110); POTASSIUM 4.1 mmol/L (3.5-5.1); SODIUM SERUM 138 mmol/L (136-145); TOTAL PROTEIN, SERUM 6.8 g/dL (6.4-8.2); UREA NITROGEN, BLOOD 21 mg/dL (7-18); VANCOMYCIN,RANDOM 20.2 mcg/mL (25.0-50.0)
[2018-01-11] MEDS ORDERED: SODIUM HYPOCHLORITE 0.25% [HALF STRENGTH] 473 ML SOLUTION TP ONE (07:00)
[2018-01-11] MEDS ORDERED: MEPERIDINE-PF 50 MG/ML SYRINGE IVP PRN (07:30)
[2018-01-11] MEDS ORDERED: HYDROmorphone 2 MG/ML SYRINGE IVP PRN (07:30)
[2018-01-11] MEDS: OXYGEN THERAPY IH SCH (08:00)
[2018-01-11] MEDS ORDERED: BUPIVACAINE LIPOSOME/PF 1.3%-13.3MG/ML SUSPENSION 20 ML VIAL INJ ONE (08:15)
[2018-01-11] MEDS ORDERED: SODIUM CHLORIDE 0.9% 20 ML ONE (08:16)
[2018-01-11] MEDS ORDERED: BUPIVACAINE HCL/PF 0.5% 30 ML VIAL ONE (08:17)
[2018-01-11] MEDS ORDERED: THROMBIN, BOVINE 20000 UNITS/VIAL POWDER TP ONE (08:27)
[2018-01-11] MEDS ORDERED: GELATIN SPONGE,ABSORBABLE 100 MM TP ONE (08:27)
[2018-01-11] MEDS ORDERED: ALBUMIN HUMAN 5%-12.5GM/250ML 250 ML IV ONE (09:00)
[2018-01-11] MEDS ORDERED: FentaNYL CITRATE-PF 100 MCG/2 ML VIAL ONE ×2 (11:13→11:38)
[2018-01-11] MEDS: FentaNYL CITRATE-PF 100 MCG/2 ML VIAL IVP PRN ×4 (11:16→11:44)
[2018-01-11] MEDS ORDERED: HYDROmorphone 2 MG/ML SYRINGE IVP ONE (11:45)
[2018-01-11] MEDS ORDERED: HYDROmorphone 2 MG/ML SYRINGE ONE (11:47)
[2018-01-11] MEDS ORDERED: DIAZEPAM 5 MG/ML 2 ML SYRINGE IVP ONE (12:15)
[2018-01-11] MEDS: PANTOPRAZOLE SODIUM 40 MG DR TABLET PO SCH (13:21)
[2018-01-11] MEDS: CHOLECALCIFEROL (VIT D3) 1,000 UNITS TABLET PO SCH (13:21)
[2018-01-11] MEDS: HEPARIN SODIUM,PORCINE 5,000 UNITS/ML VIAL SQ SCH ×2 (13:21→21:27)
[2018-01-11] MEDS: MULTIVITAMINS WITH MINERALS, THERAPEUTIC TABLET PO SCH (13:21)
[2018-01-11] MEDS ORDERED: *CLINICAL-RX DOSING [ENTER DRUG IN COMMENTS] CLINICAL ONE (16:45)
[2018-01-11] MEDS ORDERED: MORPHINE SULFATE 4 MG/ML SYRINGE IVP ONE (16:45)
[2018-01-11 18:14] LABS: BASOPHILS % (AUTO) 0.2 % (0.0-2.0); EOSINOPHILS % (AUTO) 0 % (1.0-6.0); LYMPHOCYTES # (AUTO) 1.2 K/uL (1.0-4.8); LYMPHOCYTES % (AUTO) 4.6 % (22.0-44.0); MEAN CORPUSCULAR HEMOGLOBIN 27.7 pg (26.0-34.0); MEAN CORPUSCULAR HGB CONC 32.8 G/dL (31.0-37.0); MEAN CORPUSCULAR VOLUME 85 fL (80-100); MONOCYTES # (AUTO) 1.8 K/uL (0.1-1.0); NEUTROPHILS # (AUTO) 22.6 K/uL (1.8-7.7); PLATELET COUNT (AUTO) 646 K/uL (150-450); RED BLOOD CELL COUNT(AUTO) 2.55 MIL/uL (4.00-5.20); RED CELL DISTRIBUTION WIDTH 15.6 % (11.5-14.5)
[2018-01-11 18:35] LABS: NEUTROPHILS % (AUTO) 88.2 % (40.0-70.0)
[2018-01-11 18:38] LABS: HEMOGLOBIN 7.2 g/dL (12.0-16.0)
[2018-01-11] MEDS: PENICILLIN G POTASSIUM 4 MILUNITS in DEXTROSE 5%-WATER 100 ML IV SCH ×2 (19:24→22:34)
[2018-01-11] MEDS: CLINDAMYCIN 900 MG/D5% WATER 50 ML IV SCH (19:35)
[2018-01-11] MEDS: ACETAMINOPHEN 325 MG TABLET PO PRN ×2 (19:40→23:24)
[2018-01-11] MEDS ORDERED: SODIUM CHLORIDE 0.9% 500 ML IV ONE (20:40)
[2018-01-11] MEDS: OxyCODONE HCL/ACETAMINOPHEN 5-325 MG TABLET PO PRN (21:27)
[2018-01-12] VITALS (15 sets, daily range): BP systolic 108–143; BP diastolic 60–89
[2018-01-12] MEDS: MORPHINE SULFATE 4 MG/ML SYRINGE IVP PRN ×5 (00:43→20:23)
[2018-01-12] MEDS: ONDANSETRON HCL 4 MG/2 ML VIAL IVP PRN ×2 (00:48→23:07)
[2018-01-12] MEDS: PENICILLIN G POTASSIUM 4 MILUNITS in DEXTROSE 5%-WATER 100 ML IV SCH ×6 (02:14→22:59)
[2018-01-12] MEDS: SODIUM CHLORIDE 0.9% 1,000 ML IV SCH ×2 (02:15→16:05)
[2018-01-12] MEDS: CLINDAMYCIN 900 MG/D5% WATER 50 ML IV SCH ×3 (03:06→18:42)
[2018-01-12] MEDS ORDERED: ALBUTEROL SULFATE HFA 90 MCG/PUFF 8 GM INHALER IH ONE (05:49)
[2018-01-12] MEDS ORDERED: DEXAMETHASONE SOD PHOS 4 MG/ML VIAL IVP ONE (05:49)
[2018-01-12] MEDS ORDERED: LABETALOL HCL 5 MG/ML 20 ML VIAL IVP ONE (05:49)
[2018-01-12] MEDS ORDERED: GLYCOPYRROLATE 0.2 MG/ML VIAL IM ONE (05:49)
[2018-01-12] MEDS ORDERED: SUCCINYLCHOLINE CHLORIDE 20 MG/ML 10 ML VIAL IVP ONE (05:49)
[2018-01-12] MEDS ORDERED: LIDOCAINE HCL/PF 2% 5 ML SYRINGE IVP ONE (05:49)
[2018-01-12] MEDS ORDERED: PROPOFOL 1% 20 ML VIAL IVP ONE (05:49)
[2018-01-12] MEDS ORDERED: METOCLOPRAMIDE HCL 5 MG/ML 2 ML VIAL IVP ONE (05:49)
[2018-01-12] MEDS ORDERED: NEOSTIGMINE METHYLSULFATE 1 MG/ML 10 ML VIAL IVP ONE (05:49)
[2018-01-12] MEDS ORDERED: ROCURONIUM BROMIDE 10 MG/ML 5 ML VIAL IVP ONE (05:49)
[2018-01-12 06:42] LABS: BASOPHILS % (AUTO) 0.4 % (0.0-2.0); EOSINOPHILS % (AUTO) 0.2 % (1.0-6.0); HEMATOCRIT 23.4 % (36-46); HEMOGLOBIN 8.3 g/dL (12.0-16.0); LYMPHOCYTES # (AUTO) 1.9 K/uL (1.0-4.8); MEAN CORPUSCULAR HEMOGLOBIN 29.6 pg (26.0-34.0); MEAN CORPUSCULAR HGB CONC 35.4 G/dL (31.0-37.0); MEAN CORPUSCULAR VOLUME 84 fL (80-100); MONOCYTES # (AUTO) 1.4 K/uL (0.1-1.0); MONOCYTES % (AUTO) 13.7 % (2.0-9.0); NEUTROPHILS % (AUTO) 67.7 % (40.0-70.0); PLATELET COUNT (AUTO) 381 K/uL (150-450); RED CELL DISTRIBUTION WIDTH 15.2 % (11.5-14.5)
[2018-01-12 07:11] LABS: ANION GAP 6 mmol/L (8-16); CALCIUM, TOTAL 7.2 mg/dL (8.8-10.5); CARBON DIOXIDE 27 mmol/L (22-29); CHLORIDE 106 mmol/L (98-107); CREATININE 0.73 mg/dL (0.60-1.30); GLOMERULAR FILTR. RATE CALC > 60 mL/min (>60); GLUCOSE,RANDOM 100 mg/dL (70-110); POTASSIUM 3.7 mmol/L (3.5-5.1); SODIUM SERUM 139 mmol/L (136-145); UREA NITROGEN, BLOOD 14 mg/dL (7-18)
[2018-01-12] MEDS: PANTOPRAZOLE SODIUM 40 MG DR TABLET PO SCH (08:39)
[2018-01-12] MEDS: MULTIVITAMINS WITH MINERALS, THERAPEUTIC TABLET PO SCH (08:40)
[2018-01-12] MEDS: CHOLECALCIFEROL (VIT D3) 1,000 UNITS TABLET PO SCH (08:40)
[2018-01-12] MEDS: OxyCODONE HCL/ACETAMINOPHEN 5-325 MG TABLET PO PRN ×3 (08:40→23:08)
[2018-01-12] MEDS: HEPARIN SODIUM,PORCINE 5,000 UNITS/ML VIAL SQ SCH ×2 (11:28→20:23)
[2018-01-12] MEDS ORDERED: SODIUM CHLORIDE 0.9% 500 ML IV ONE (16:05)
[2018-01-12 16:13] LABS: HEMATOCRIT 21.5 % (36-46); HEMOGLOBIN 7.6 g/dL (12.0-16.0)
[2018-01-12] MEDS: ZOLPIDEM TARTRATE 5 MG TABLET PO PRN (23:07)
[2018-01-13] VITALS (16 sets, daily range): BP systolic 111–140; BP diastolic 56–94
[2018-01-13] MEDS: MORPHINE SULFATE 4 MG/ML SYRINGE IVP PRN ×5 (01:40→22:50)
[2018-01-13] MEDS: PENICILLIN G POTASSIUM 4 MILUNITS in DEXTROSE 5%-WATER 100 ML IV SCH ×6 (02:41→22:36)
[2018-01-13] MEDS: CLINDAMYCIN 900 MG/D5% WATER 50 ML IV SCH ×3 (02:42→20:15)
[2018-01-13 06:56] LABS: BASOPHILS % (AUTO) 1.2 % (0.0-2.0); HEMATOCRIT 21.3 % (36-46); HEMOGLOBIN 7.4 g/dL (12.0-16.0); LYMPHOCYTES # (AUTO) 1.6 K/uL (1.0-4.8); LYMPHOCYTES % (AUTO) 14.5 % (22.0-44.0); MEAN CORPUSCULAR HEMOGLOBIN 29.2 pg (26.0-34.0); MEAN CORPUSCULAR HGB CONC 34.8 G/dL (31.0-37.0); MEAN CORPUSCULAR VOLUME 84 fL (80-100); MONOCYTES # (AUTO) 1.6 K/uL (0.1-1.0); MONOCYTES % (AUTO) 14.8 % (2.0-9.0); NEUTROPHILS # (AUTO) 7.3 K/uL (1.8-7.7); NEUTROPHILS % (AUTO) 68.5 % (40.0-70.0); PLATELET COUNT (AUTO) 312 K/uL (150-450); RED BLOOD CELL COUNT(AUTO) 2.53 MIL/uL (4.00-5.20); RED CELL DISTRIBUTION WIDTH 15.5 % (11.5-14.5)
[2018-01-13] MEDS: CHOLECALCIFEROL (VIT D3) 1,000 UNITS TABLET PO SCH (09:21)
[2018-01-13] MEDS: MULTIVITAMINS WITH MINERALS, THERAPEUTIC TABLET PO SCH (09:21)
[2018-01-13] MEDS: PANTOPRAZOLE SODIUM 40 MG DR TABLET PO SCH (09:22)
[2018-01-13] MEDS: HEPARIN SODIUM,PORCINE 5,000 UNITS/ML VIAL SQ SCH ×2 (09:22→20:15)
[2018-01-13] MEDS: OxyCODONE HCL/ACETAMINOPHEN 5-325 MG TABLET PO PRN (09:46)
[2018-01-13] MEDS ORDERED: SODIUM CHLORIDE 0.9% 500 ML IV ONE ×2 (11:36→22:43)
[2018-01-13] MEDS: ACETAMINOPHEN 325 MG TABLET PO PRN ×2 (19:45→23:26)
[2018-01-13] MEDS ORDERED: SODIUM CHLORIDE 0.9% 250 ML IV ONE (23:19)
[2018-01-14] VITALS (13 sets, daily range): BP systolic 103–124; BP diastolic 49–69
[2018-01-14] MEDS: MORPHINE SULFATE 4 MG/ML SYRINGE IVP PRN ×4 (02:55→23:58)
[2018-01-14] MEDS: ONDANSETRON HCL 4 MG/2 ML VIAL IVP PRN ×2 (02:55→22:16)
[2018-01-14] MEDS: CLINDAMYCIN 900 MG/D5% WATER 50 ML IV SCH ×3 (03:03→18:28)
[2018-01-14] MEDS: PENICILLIN G POTASSIUM 4 MILUNITS in DEXTROSE 5%-WATER 100 ML IV SCH ×6 (03:39→22:05)
[2018-01-14 08:16] LABS: BASOPHILS % (AUTO) 0.4 % (0.0-2.0); EOSINOPHILS % (AUTO) 1.7 % (1.0-6.0); HEMATOCRIT 27.9 % (36-46); HEMOGLOBIN 9.7 g/dL (12.0-16.0); LYMPHOCYTES # (AUTO) 1.4 K/uL (1.0-4.8); LYMPHOCYTES % (AUTO) 13.6 % (22.0-44.0); MEAN CORPUSCULAR HEMOGLOBIN 29.1 pg (26.0-34.0); MEAN CORPUSCULAR HGB CONC 34.7 G/dL (31.0-37.0); MEAN CORPUSCULAR VOLUME 84 fL (80-100); MONOCYTES # (AUTO) 1.1 K/uL (0.1-1.0); MONOCYTES % (AUTO) 10.9 % (2.0-9.0); NEUTROPHILS # (AUTO) 7.3 K/uL (1.8-7.7); NEUTROPHILS % (AUTO) 73.4 % (40.0-70.0); PLATELET COUNT (AUTO) 343 K/uL (150-450); RED BLOOD CELL COUNT(AUTO) 3.33 MIL/uL (4.00-5.20); RED CELL DISTRIBUTION WIDTH 15.6 % (11.5-14.5)
[2018-01-14] MEDS: MULTIVITAMINS WITH MINERALS, THERAPEUTIC TABLET PO SCH (09:09)
[2018-01-14] MEDS: HEPARIN SODIUM,PORCINE 5,000 UNITS/ML VIAL SQ SCH ×2 (09:09→22:05)
[2018-01-14] MEDS: PANTOPRAZOLE SODIUM 40 MG DR TABLET PO SCH (09:09)
[2018-01-14] MEDS: CHOLECALCIFEROL (VIT D3) 1,000 UNITS TABLET PO SCH (09:09)
[2018-01-14] MEDS: OxyCODONE HCL/ACETAMINOPHEN 5-325 MG TABLET PO PRN (12:47)
[2018-01-14] MEDS: ZOLPIDEM TARTRATE 5 MG TABLET PO PRN (22:16)
[2018-01-14] MEDS: ACETAMINOPHEN 325 MG TABLET PO PRN (22:16)
[2018-01-15 00:30] VITALS: BP 141/73
[2018-01-15] MEDS: PENICILLIN G POTASSIUM 4 MILUNITS in DEXTROSE 5%-WATER 100 ML IV SCH ×6 (01:37→22:35)
[2018-01-15] MEDS: CLINDAMYCIN 900 MG/D5% WATER 50 ML IV SCH ×3 (02:46→18:11)
[2018-01-15 04:40] VITALS: BP 124/72
[2018-01-15] MEDS: MORPHINE SULFATE 4 MG/ML SYRINGE IVP PRN ×3 (06:40→19:44)
[2018-01-15] MEDS: OXYGEN THERAPY IH SCH (08:00)
[2018-01-15 08:13] VITALS: BP 115/68
[2018-01-15] MEDS: OxyCODONE HCL/ACETAMINOPHEN 5-325 MG TABLET PO PRN ×2 (08:44→22:42)
[2018-01-15] MEDS: CHOLECALCIFEROL (VIT D3) 1,000 UNITS TABLET PO SCH (08:44)
[2018-01-15] MEDS: MULTIVITAMINS WITH MINERALS, THERAPEUTIC TABLET PO SCH (08:45)
[2018-01-15] MEDS: HEPARIN SODIUM,PORCINE 5,000 UNITS/ML VIAL SQ SCH ×2 (08:45→21:28)
[2018-01-15] MEDS: PANTOPRAZOLE SODIUM 40 MG DR TABLET PO SCH (08:45)
[2018-01-15] MEDS ORDERED: SODIUM CHLORIDE 0.9% 500 ML IV ONE (10:44)
[2018-01-15 11:55] VITALS: BP 107/55
[2018-01-15] MEDS ORDERED: MAGNESIUM SULFATE 2 GM/WATER 50 ML IV PRN (14:15)
[2018-01-15 15:27] VITALS: BP 111/56
[2018-01-15 20:22] VITALS: BP 118/64
[2018-01-15] MEDS: ZOLPIDEM TARTRATE 5 MG TABLET PO PRN (22:37)
[2018-01-15] MEDS: ONDANSETRON HCL 4 MG/2 ML VIAL IVP PRN (22:37)
[2018-01-16] VITALS: BP 146/86
[2018-01-16] MEDS: CLINDAMYCIN 900 MG/D5% WATER 50 ML IV SCH ×3 (02:18→19:32)
[2018-01-16] MEDS: PENICILLIN G POTASSIUM 4 MILUNITS in DEXTROSE 5%-WATER 100 ML IV SCH ×6 (02:58→23:10)
[2018-01-16 04:00] VITALS: BP 141/82
[2018-01-16] MEDS: MORPHINE SULFATE 4 MG/ML SYRINGE IVP PRN ×4 (05:15→20:44)
[2018-01-16 07:48] VITALS: BP 104/61
[2018-01-16] MEDS: OXYGEN THERAPY IH SCH (08:00)
[2018-01-16] MEDS: PANTOPRAZOLE SODIUM 40 MG DR TABLET PO SCH (08:13)
[2018-01-16] MEDS: CHOLECALCIFEROL (VIT D3) 1,000 UNITS TABLET PO SCH (08:13)
[2018-01-16] MEDS: HEPARIN SODIUM,PORCINE 5,000 UNITS/ML VIAL SQ SCH ×2 (08:13→20:43)
[2018-01-16] MEDS: MULTIVITAMINS WITH MINERALS, THERAPEUTIC TABLET PO SCH (08:13)
[2018-01-16] MEDS: OxyCODONE HCL/ACETAMINOPHEN 5-325 MG TABLET PO PRN ×2 (08:24→23:20)
[2018-01-16] MEDS: ONDANSETRON HCL 4 MG/2 ML VIAL IVP PRN ×2 (08:24→20:44)
[2018-01-16 12:01] VITALS: BP 113/69
[2018-01-16] MEDS: ACETAMINOPHEN 325 MG TABLET PO PRN (18:29)
[2018-01-16 19:59] VITALS: BP 106/68
[2018-01-16] MEDS ORDERED: SODIUM CHLORIDE 0.9% 500 ML IV ONE (23:06)
[2018-01-16] MEDS: ZOLPIDEM TARTRATE 5 MG TABLET PO PRN (23:20)
[2018-01-16 23:47] VITALS: BP 106/48
[2018-01-17] MEDS: CLINDAMYCIN 900 MG/D5% WATER 50 ML IV SCH ×3 (02:52→19:02)
[2018-01-17] MEDS: PENICILLIN G POTASSIUM 4 MILUNITS in DEXTROSE 5%-WATER 100 ML IV SCH ×6 (02:52→22:59)
[2018-01-17] MEDS: ONDANSETRON HCL 4 MG/2 ML VIAL IVP PRN ×2 (03:02→08:27)
[2018-01-17] MEDS: MORPHINE SULFATE 4 MG/ML SYRINGE IVP PRN ×3 (03:02→19:55)
[2018-01-17 05:20] VITALS: BP 96/53
[2018-01-17] MEDS: OXYGEN THERAPY IH SCH ×2 (08:00→20:07)
[2018-01-17] MEDS: MULTIVITAMINS WITH MINERALS, THERAPEUTIC TABLET PO SCH (08:09)
[2018-01-17] MEDS: HEPARIN SODIUM,PORCINE 5,000 UNITS/ML VIAL SQ SCH ×2 (08:10→20:00)
[2018-01-17] MEDS: CHOLECALCIFEROL (VIT D3) 1,000 UNITS TABLET PO SCH (08:10)
[2018-01-17] MEDS: PANTOPRAZOLE SODIUM 40 MG DR TABLET PO SCH (08:10)
[2018-01-17 08:19] VITALS: BP 121/66
[2018-01-17 12:20] VITALS: BP 124/66
[2018-01-17] MEDS: OxyCODONE HCL/ACETAMINOPHEN 5-325 MG TABLET PO PRN ×2 (16:33→23:10)
[2018-01-17 19:34] VITALS: BP 122/74
[2018-01-17 23:47] VITALS: BP 113/73
[2018-01-18] MEDS: MORPHINE SULFATE 4 MG/ML SYRINGE IVP PRN ×4 (01:37→23:02)
[2018-01-18] MEDS: ZOLPIDEM TARTRATE 5 MG TABLET PO PRN ×2 (01:37→22:57)
[2018-01-18] MEDS: PENICILLIN G POTASSIUM 4 MILUNITS in DEXTROSE 5%-WATER 100 ML IV SCH ×6 (02:30→22:53)
[2018-01-18] MEDS: CLINDAMYCIN 900 MG/D5% WATER 50 ML IV SCH ×3 (03:59→18:24)
[2018-01-18 05:07] VITALS: BP 113/56
[2018-01-18] MEDS: OxyCODONE HCL/ACETAMINOPHEN 5-325 MG TABLET PO PRN ×3 (05:36→20:46)
[2018-01-18 07:19] VITALS: BP 114/58
[2018-01-18] MEDS: MULTIVITAMINS WITH MINERALS, THERAPEUTIC TABLET PO SCH (08:37)
[2018-01-18] MEDS: PANTOPRAZOLE SODIUM 40 MG DR TABLET PO SCH (08:37)
[2018-01-18] MEDS: CHOLECALCIFEROL (VIT D3) 1,000 UNITS TABLET PO SCH (08:37)
[2018-01-18] MEDS: HEPARIN SODIUM,PORCINE 5,000 UNITS/ML VIAL SQ SCH ×2 (08:39→22:52)
[2018-01-18 11:35] VITALS: BP 115/69
[2018-01-18] MEDS ORDERED: HYDROmorphone 2 MG/ML SYRINGE IVP ONE (12:00)
[2018-01-18] MEDS ORDERED: MIDAZOLAM HCL 2 MG/2 ML VIAL IVP ONE (12:00)
[2018-01-18] MEDS ORDERED: KETAMINE HCL 50 MG/ML 10 ML VIAL IVP ONE (12:00)
[2018-01-18] MEDS ORDERED: FentaNYL CITRATE-PF 100 MCG/2 ML VIAL IVP ONE (12:00)
[2018-01-18] MEDS ORDERED: ALTEPLASE 2 MG/VIAL IVCATH ONE (14:30)
[2018-01-18 15:31] VITALS: BP 101/76
[2018-01-18 19:42] VITALS: BP 113/57
[2018-01-18] MEDS: ONDANSETRON HCL 4 MG/2 ML VIAL IVP PRN (20:46)
[2018-01-18 23:22] VITALS: BP 115/70
[2018-01-19] MEDS: CLINDAMYCIN 900 MG/D5% WATER 50 ML IV SCH ×3 (02:26→17:56)
[2018-01-19] MEDS ORDERED: SODIUM CHLORIDE 0.9% 500 ML IV ONE ×2 (02:27→17:45)
[2018-01-19] MEDS: PENICILLIN G POTASSIUM 4 MILUNITS in DEXTROSE 5%-WATER 100 ML IV SCH ×6 (02:30→20:58)
[2018-01-19 04:50] VITALS: BP 110/62
[2018-01-19] MEDS: MORPHINE SULFATE 4 MG/ML SYRINGE IVP PRN ×4 (06:19→20:59)
[2018-01-19] MEDS: OXYGEN THERAPY IH SCH (08:00)
[2018-01-19 08:06] VITALS: BP 127/77
[2018-01-19] MEDS: CHOLECALCIFEROL (VIT D3) 1,000 UNITS TABLET PO SCH (08:34)
[2018-01-19] MEDS: PANTOPRAZOLE SODIUM 40 MG DR TABLET PO SCH (08:34)
[2018-01-19] MEDS: OxyCODONE HCL/ACETAMINOPHEN 5-325 MG TABLET PO PRN (08:35)
[2018-01-19] MEDS: MULTIVITAMINS WITH MINERALS, THERAPEUTIC TABLET PO SCH (08:35)
[2018-01-19] MEDS: HEPARIN SODIUM,PORCINE 5,000 UNITS/ML VIAL SQ SCH (08:35)
[2018-01-19 11:47] VITALS: BP 116/79
[2018-01-19 16:19] VITALS: BP 107/66
[2018-01-19 19:32] VITALS: BP 118/65
[2018-01-19] MEDS: ONDANSETRON HCL 4 MG/2 ML VIAL IVP PRN (20:59)
[2018-01-19 23:10] VITALS: BP 120/76
[2018-01-20] MEDS: PENICILLIN G POTASSIUM 4 MILUNITS in DEXTROSE 5%-WATER 100 ML IV SCH ×6 (01:59→21:13)
[2018-01-20] MEDS: MORPHINE SULFATE 4 MG/ML SYRINGE IVP PRN ×4 (01:59→21:20)
[2018-01-20] MEDS: HEPARIN SODIUM,PORCINE 5,000 UNITS/ML VIAL SQ SCH ×4 (01:59→21:13)
[2018-01-20] MEDS: CLINDAMYCIN 900 MG/D5% WATER 50 ML IV SCH ×3 (03:02→18:35)
[2018-01-20 05:44] VITALS: BP 139/69
[2018-01-20 06:12] LABS: BASOPHILS % (AUTO) 0.5 % (0.0-2.0); EOSINOPHILS % (AUTO) 4.9 % (1.0-6.0); HEMATOCRIT 27.9 % (36-46); HEMOGLOBIN 9.8 g/dL (12.0-16.0); LYMPHOCYTES # (AUTO) 1.4 K/uL (1.0-4.8); LYMPHOCYTES % (AUTO) 19.4 % (22.0-44.0); MEAN CORPUSCULAR HEMOGLOBIN 29.3 pg (26.0-34.0); MEAN CORPUSCULAR HGB CONC 35.2 G/dL (31.0-37.0); MEAN CORPUSCULAR VOLUME 83 fL (80-100); MONOCYTES # (AUTO) 1.2 K/uL (0.1-1.0); MONOCYTES % (AUTO) 16.4 % (2.0-9.0); NEUTROPHILS # (AUTO) 4.4 K/uL (1.8-7.7); NEUTROPHILS % (AUTO) 58.8 % (40.0-70.0); PLATELET COUNT (AUTO) 423 K/uL (150-450); RED BLOOD CELL COUNT(AUTO) 3.35 MIL/uL (4.00-5.20); RED CELL DISTRIBUTION WIDTH 14.9 % (11.5-14.5)
[2018-01-20] MEDS: OxyCODONE HCL/ACETAMINOPHEN 5-325 MG TABLET PO PRN ×3 (06:27→23:34)
[2018-01-20 07:04] LABS: ALANINE AMINOTRANSFERASE 16 U/L (12-78); ALBUMIN 2.2 g/dL (3.4-5.0); ALKALINE PHOSPHATASE 72 U/L (46-116); ANION GAP 5 mmol/L (8-16); ASPARTATE AMINOTRANSFERASE 16 U/L (15-37); BILIRUBIN,TOTAL 0.2 mg/dL (0.1-1.0); CALCIUM, TOTAL 8.4 mg/dL (8.8-10.5); CARBON DIOXIDE 27 mmol/L (22-29); CHLORIDE 101 mmol/L (98-107); CREATININE 0.68 mg/dL (0.60-1.30); GLOMERULAR FILTR. RATE CALC > 60 mL/min (>60); GLUCOSE,RANDOM 87 mg/dL (70-110); POTASSIUM 3.9 mmol/L (3.5-5.1); SODIUM SERUM 133 mmol/L (136-145); TOTAL PROTEIN, SERUM 7.2 g/dL (6.4-8.2); UREA NITROGEN, BLOOD 10 mg/dL (7-18)
[2018-01-20 07:20] VITALS: BP 111/60
[2018-01-20] MEDS: MULTIVITAMINS WITH MINERALS, THERAPEUTIC TABLET PO SCH (09:08)
[2018-01-20] MEDS: CHOLECALCIFEROL (VIT D3) 1,000 UNITS TABLET PO SCH (09:08)
[2018-01-20] MEDS: PANTOPRAZOLE SODIUM 40 MG DR TABLET PO SCH (09:08)
[2018-01-20 11:39] VITALS: BP 100/63
[2018-01-20 16:11] VITALS: BP 118/77
[2018-01-20 20:50] VITALS: BP 118/72
[2018-01-20 23:43] VITALS: BP 115/68
[2018-01-21] MEDS: CLINDAMYCIN 900 MG/D5% WATER 50 ML IV SCH ×2 (03:23→10:30)
[2018-01-21] MEDS: PENICILLIN G POTASSIUM 4 MILUNITS in DEXTROSE 5%-WATER 100 ML IV SCH ×4 (03:23→14:50)
[2018-01-21] MEDS: MORPHINE SULFATE 4 MG/ML SYRINGE IVP PRN ×2 (03:32→14:55)
[2018-01-21 04:00] VITALS: BP 131/75
[2018-01-21 07:45] VITALS: BP 118/63
[2018-01-21] MEDS: PANTOPRAZOLE SODIUM 40 MG DR TABLET PO SCH (09:57)
[2018-01-21] MEDS: MULTIVITAMINS WITH MINERALS, THERAPEUTIC TABLET PO SCH (09:57)
[2018-01-21] MEDS: HEPARIN SODIUM,PORCINE 5,000 UNITS/ML VIAL SQ SCH (09:58)
[2018-01-21] MEDS: CHOLECALCIFEROL (VIT D3) 1,000 UNITS TABLET PO SCH (09:58)
[2018-01-21] MEDS ORDERED: SODIUM CHLORIDE 0.9% 500 ML IV ONE (11:13)
[2018-01-21 12:00] VITALS: BP 110/65
== END 2018-01-21 16:10 | DRG 710 ==
LOC: EMS 14:43 → ICU 20:00 → 6N 01-03 14:33
PROVIDERS: ADMIT Internal Medicine; ATTEND Internal Medicine
PROC: 0KBL0ZZ Excision of Left Abdomen Muscle, Open Approach (ICD-10-PCS; 2018-01-01)
PROC: 5A1935Z Respiratory Ventilation, Less than 24 Consecutive Hours (ICD-10-PCS; 2018-01-01)
PROC: 0J9J0ZZ Drainage of Right Hand Subcutaneous Tissue and Fascia, Open Approach (ICD-10-PCS; 2018-01-01)
PROC: 0KBK0ZZ Excision of Right Abdomen Muscle, Open Approach (ICD-10-PCS; principal; 2018-01-01 19:30)
PROC: 2W03X6Z Change Pressure Dressing on Abdominal Wall (ICD-10-PCS; 2018-01-04)
PROC: 30233N1 Transfusion of Nonautologous Red Blood Cells into Peripheral Vein, Percutaneous Approach (ICD-10-PCS; 2018-01-04)
PROC: 02HV33Z Insertion of Infusion Device into Superior Vena Cava, Percutaneous Approach (ICD-10-PCS; 2018-01-08)
PROC: B548ZZA Ultrasonography of Superior Vena Cava, Guidance (ICD-10-PCS; 2018-01-08)
PROC: 0JB80ZZ Excision of Abdomen Subcutaneous Tissue and Fascia, Open Approach (ICD-10-PCS; 2018-01-14)
PROC: 0JX80ZB Transfer Abdomen Subcutaneous Tissue and Fascia with Skin and Subcutaneous Tissue, Open Approach (ICD-10-PCS; 2018-01-14)
DX: A41.9 Sepsis, unspecified organism (principal); R65.21 Severe sepsis with septic shock; M72.6 Necrotizing fasciitis; E43 Unspecified severe protein-calorie malnutrition; N17.9 Acute kidney failure, unspecified; L03.011 Cellulitis of right finger; E87.1 Hypo-osmolality and hyponatremia; Z87.891 Personal history of nicotine dependence; F11.10 Opioid abuse, uncomplicated; D25.9 Leiomyoma of uterus, unspecified; D64.9 Anemia, unspecified; E83.42 Hypomagnesemia; E83.51 Hypocalcemia; E87.6 Hypokalemia; I10 Essential (primary) hypertension; J93.82 Other air leak; L02.211 Cutaneous abscess of abdominal wall; L03.311 Cellulitis of abdominal wall; M65.9 Synovitis and tenosynovitis, unspecified; Z59.0 Homelessness; Z91.19 Patient's noncompliance with other medical treatment and regimen; Z22.322 Carrier or suspected carrier of Methicillin resistant Staphylococcus aureus
CPT/HCPCS: 36245; 36569; 74177; 76937; 82306; 82805; 83605; 83735; 84100; 84132; 84443; 85014; 85018; 86850; 86900; 86901; 86920; 87040; 87070; 87081; 87147; 87205; 88304; 92610; 94002; 94003; 96365; 96367; 96375; 99291; C9290; J0131; J0330; J0690; J1100; J1170; J1644; J1885; J2250; J2270; J2370; J2405; J2540; J2543; J2704; J2765; J2997; J3010; J3370; J3480; J3490; J3535; J7030; J7040; J7050; J7060; J7120; P9016; P9041

== ENCOUNTER → 2018-02-11 | Outpatient (CLI) | payer MEDICAID ==
[~2018-02-11] MED LIST: ACET-784 PO; ALPR0.5T8 PO; AUD NEB; HEPA500018 SQ; IPRA3AMP23 NEB; IPRNEB IH; LORA1TAB3 PO; MOM30 PO; MULT-248 PO; ONDA4 PO; PANT40TA25 PO; PERCT PO; VITAD1000 PO; ZOLP5 PO
[2018-02-11 08:30] VITALS: BP 115/53
== END | disposition home or self-care (01) ==
LOC: HBOWC 08:17
PROVIDERS: ATTEND Surgery Plastic and Reconstructive Surgery
DX: S31.104D Unspecified open wound of abdominal wall, left lower quadrant without penetration into peritoneal cavity, subsequent encounter (principal); S31.109D Unspecified open wound of abdominal wall, unspecified quadrant without penetration into peritoneal cavity, subsequent encounter; M72.6 Necrotizing fasciitis; I10 Essential (primary) hypertension; E43 Unspecified severe protein-calorie malnutrition; Z87.891 Personal history of nicotine dependence; X58.XXXD Exposure to other specified factors, subsequent encounter

== ENCOUNTER 2018-02-21 00:45 | Emergency (ER) | payer MEDICAID ==
[~2018-02-21] VITALS: Ht 165.1 cm; Wt 79.5 kg
[~2018-02-21 00:45] MED LIST changes: -ALPR0.5T8 PO; -LORA1TAB3 PO
[2018-02-21 00:48] VITALS: BP 139/50
[2018-02-21] MEDS ORDERED: ALPR0.5T8 PO (01:10)
[2018-02-21] MEDS ORDERED: LORA1TAB3 PO (01:10)
== END 2018-02-21 05:00 | disposition home or self-care (01) ==
LOC: EMS 00:46
DX: F41.9 Anxiety disorder, unspecified (principal); F32.9 Major depressive disorder, single episode, unspecified; F11.90 Opioid use, unspecified, uncomplicated
CPT/HCPCS: 99284